=== PATIENT | female | born 1980 | race Caucasian/White ===

== ENCOUNTER 2024-03-29 10:47 | Outpatient (RCR) | payer BC, SELFPAY | END 2024-03-29 23:59 | disposition home or self-care (01) | LOC: RPT 10:47 | PROVIDERS: ATTENDING PHYSICIAN Physician Assistant; FAMILY PHYSICIAN Physician Assistant Medical | DX: M25.562 Pain in left knee (principal) | CPT/HCPCS: 97110; 97162; 97535 ==

== ENCOUNTER 2024-04-08 16:13 | Outpatient (RCR) | payer BC, SELFPAY | END 2024-04-09 11:52 | disposition home or self-care (01) | LOC: RPT 16:13 | PROVIDERS: ATTENDING PHYSICIAN Physician Assistant; FAMILY PHYSICIAN Physician Assistant Medical | DX: M25.562 Pain in left knee (principal) | CPT/HCPCS: 97110; 97535 ==

== ENCOUNTER → 2024-04-12 07:28 | Outpatient (REF) | payer BC, SELFPAY | LOC: HWWDC 07:28 | PROVIDERS: ATTENDING PHYSICIAN Physician Assistant Medical | DX: Z12.31 Encounter for screening mammogram for malignant neoplasm of breast (principal) | CPT/HCPCS: 77063; 77067 ==